=== PATIENT | female | born 1955 | race Caucasian/White ===

== ENCOUNTER → 2017-07-09 | Outpatient (CLI) | payer BC ==
[~2017-07-09] MED LIST: ASPIRIN 32325 MG/TAB PO; EXCEDRIN IB200 MG PO; IMITREX 25MG TA25 MG PO; LIPITOR 40MG TA40 MG PO
== END ==
LOC: MC.RAD 08:17
DX: Z12.31 Encounter for screening mammogram for malignant neoplasm of breast (principal)

== ENCOUNTER 2023-06-20 08:26 | Emergency (ER) | payer MEDICARE, OTHER ==
[~2023-06-20] VITALS: Ht 154.9 cm; Wt 65.9 kg
[~2023-06-20 08:26] MED LIST changes: +ALEVE 220MG220 MG PO; +EVISTA 60MG60 MG/TAB PO; +VITAMIN D31000 I1 PO
[2023-06-20 09:02] LABS: HEMOGLOBIN 11.3 g/dl (12.5-16.0); MEAN CELL VOLUME 84 fl (80.0-100.0); MEAN CORPUSCULAR HEMOGLOBIN 28 pg (27-31); MEAN CORPUSCULAR HGB CONC 33 g/dl (33.0-37.0); MEAN PLATELET VOLUME 10.3 fl (7.4-10.4); PLATELET COUNT 382 K/mm3 (130-400); RED BLOOD COUNT 4.09 M/mm3 (4.10-5.30)
[2023-06-20 09:04] LABS: HEMATOCRIT 34.2 % (37.0-47.0)
[2023-06-20 09:20] LABS: ALBUMIN 2.8 gm/dL (3.4-4.8); BILIRUBIN,TOTAL 0.8 mg/dL (0.2-1.2); CALCIUM 8.9 mg/dL (8.4-10.2); CREATININE, serum 0.7 mg/dL (0.57-1.11); POTASSIUM 3.2 mmol/L (3.5-4.5); TOTAL PROTEIN 6.4 gm/dL (6.2-8.1)
[2023-06-20 09:29] LABS: COLLECTION METHOD CLEAN CATCH; URINE APPEARANCE Hazy (CLEAR/HAZY); URINE COLOR Yellow (YELLOW); URINE GLUCOSE Negative (NEGATIVE); URINE KETONE 1+ (NEGATIVE); URINE PROTEIN(semi-quant) Negative (NEGATIVE)
[2023-06-20 09:30] LABS: MUCOUS Present (NOT PRESENT); SQUAMOUS EPITHELIAL 0-2 /hpf (0-10); URINE BACTERIA Occasional /hpf (NONE SEEN); URINE BLOOD TRACE-INTACT (NEGATIVE); URINE NITRATE Positive (NEGATIVE); URINE WBC 0-2 /hpf (0-2)
[2023-06-20 09:59] LABS: BAND 9 % (0-10); LYMPHOCYTE 2 % (20.0-51.0); METAMYELOCYTE 1 % (0-0); NEUTROPHILS 88 % (42.0-75.2); PLATELET ESTIMATE NORMAL (NORMAL)
[2023-06-20 14:51] VITALS: BP 128/65; PULSE 76; TEMP 98
== END 2023-06-20 14:51 | disposition short-term general hospital (02) ==
LOC: COL.ER 08:26
PROVIDERS: Emergency Medicine
DX: K56.609 Unspecified intestinal obstruction, unspecified as to partial versus complete obstruction (principal); D72.829 Elevated white blood cell count, unspecified; Z98.890 Other specified postprocedural states
CPT/HCPCS: J2270; Q9967

== ENCOUNTER → 2023-09-18 | Outpatient (CLI) | payer MEDICARE, OTHER | LOC: COL.RAD 14:28 | DX: I82.621 Acute embolism and thrombosis of deep veins of right upper extremity (principal) ==

== ENCOUNTER → 2024-05-20 | Outpatient (REF) | payer MEDICARE, OTHER ==
[2024-05-20 14:35] LABS: BASOPHIL 2 % (0-2); LYMPHOCYTE 38 % (20.0-51.0); NEUTROPHILS 51 % (42.0-75.2); NUCLEATED RED BLOOD CELL 6 (0-6)
== END ==
LOC: ZCOL.LAB 12:04
PROVIDERS: Family Medicine
DX: C48.2 Malignant neoplasm of peritoneum, unspecified (principal)